=== PATIENT | female | born 1985 | race Caucasian/White ===

== ENCOUNTER 2017-11-27 05:04 | Emergency (ER) | payer OTHER ==
[~2017-11-27] VITALS: Ht 167.6 cm; Wt 72.6 kg
--- NOTE | 2017-11-27 05:10 | NUR ---
MD AT BEDSIDE FOR EVALUATION
--- NOTE | 2017-11-27 05:26 | NUR ---
RT PAGED FOR BREATHING TX.
[2017-11-27] MEDS ORDERED: DEXAMETHASONE SOD PHOSPHATE 10 MG/ML VIAL IM ONE (05:30)
[2017-11-27] MEDS ORDERED: IPRATROPIUM NEB FS 0.5 MG/2.5 ML AMPUL.NEB NEB ONE (05:30)
[2017-11-27] MEDS ORDERED: ONDANSETRON 4 MG TAB.RAPDIS SL ONE (05:30)
[2017-11-27] MEDS ORDERED: IBUPROFEN 600 MG TABLET PO ONE ×2 (05:30→05:31)
[2017-11-27] MEDS ORDERED: ALBUTEROL FS 2.5 MG/3 ML VIAL.NEB NEB ONE (05:30)
--- NOTE | 2017-11-27 05:30 | NUR ---
URINE COLLECTED AND PICKED UP BY LAB
[2017-11-27] MEDS ORDERED: DEXAMETHASONE SOD PHOSPHATE 10 MG/ML VIAL ONE (05:31)
[2017-11-27] MEDS ORDERED: ONDANSETRON 4 MG TAB.RAPDIS ONE (05:32)
[2017-11-27] MEDS ORDERED: ALBUTEROL FS 2.5 MG/3 ML VIAL.NEB ONE (05:33)
[2017-11-27] MEDS ORDERED: IPRATROPIUM NEB FS 0.5 MG/2.5 ML AMPUL.NEB ONE (05:33)
--- NOTE | 2017-11-27 05:35 | NUR ---
RT AT BEDSIDE FOR BREATHING TREATMENT
[2017-11-27 06:07] VITALS: BP 132/62
== END 2017-11-27 06:08 | disposition home or self-care (01) ==
LOC: ER 05:16
DX: J20.9 Acute bronchitis, unspecified (principal); J45.909 Unspecified asthma, uncomplicated; M19.90 Unspecified osteoarthritis, unspecified site; F17.200 Nicotine dependence, unspecified, uncomplicated; Z86.19 Personal history of other infectious and parasitic diseases
CPT/HCPCS: 84703; 94640 ×2; 96372; 99284; J1100; Q0162; Z7610; A4606

== ENCOUNTER 2018-06-02 23:28 | Emergency (ER) | payer OTHER ==
[~2018-06-02] VITALS: Ht 167.6 cm; Wt 70.3 kg
--- NOTE | 2018-06-03 00:31 | NUR ---
URINE SPECIMEN OBTAINED AND SENT TO THE LAB.
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
[2018-06-03 00:55] LABS: BASOPHILS # (AUTO) 0.1 /CMM (0.0-0.2); BASOPHILS % (AUTO) 0.9 % (0.0-2.0); EOSINOPHILS % (AUTO) 3.6 % (0.0-6.0); HEMATOCRIT 36 % (33-45); HEMOGLOBIN 12.5 g/dL (11.5-14.8); LYMPHOCYTES # (AUTO) 2.6 /CMM (0.8-4.8); LYMPHOCYTES % (AUTO) 43.3 % (20.0-44.0); MEAN CORPUSCULAR HGB CONC 35 g/dl (31.0-36.0); MEAN CORPUSCULAR VOLUME 88 fL (82-100); MONOCYTES # (AUTO) 0.5 /CMM (0.1-1.30); MONOCYTES % (AUTO) 8.2 % (2.0-12.0); NEUTROPHILS # (AUTO) 2.7 /CMM (1.8-8.9); PLATELET COUNT (AUTO) 269 /CMM (150-450); RED BLOOD CELL COUNT(AUTO) 4.04 MIL/uL (4.0-5.2); WHITE BLOOD COUNT (AUTO) 6.1 K/uL (4.3-11.0)
[2018-06-03] MEDS ORDERED: ONDANSETRON HCL/PF 4 MG/2 ML VIAL IVP ONE (01:00)
[2018-06-03] MEDS ORDERED: KETOROLAC TROMETHAMINE INJ 30 MG/ML VIAL IV ONE (01:00)
[2018-06-03] MEDS ORDERED: IV NS 0.9% 500 ML BAG IV ONE (01:00)
[2018-06-03 01:01] LABS: APPEARANCE,URINE CLEAR (CLEAR); BILIRUBIN,URINE NEGATIVE (NEGATIVE); BLOOD, URINE TRACE-INTA Ery/uL (NEGATIVE); COLOR,URINE YELLOW (YELLOW); KETONES,URINE TRACE (NEGATIVE); LEUKOCYTE ESTERASE ,URINE NEGATIVE (NEGATIVE); NITRITE, URINE NEGATIVE (NEGATIVE); PROTEIN,URINE NEGATIVE (NEGATIVE); UGLUCOSE NEGATIVE (NEGATIVE); UROBILINOGEN,URINE 0.2 EU/dL (0.2)
[2018-06-03 01:06] LABS: CALCIUM, SERUM 8.9 mg/dL (8.5-10.1); CREATININE 0.6 mg/dL (0.6-1.3); POTASSIUM 3.7 mmol/L (3.5-5.1)
[2018-06-03 01:13] LABS: BACTERIA,URINE None seen /HPF (None Seen); MUCUS,URINE Moderate /LPF (None Seen); RBC,URINE 0-2 /HPF (0-2); SQUAMOUS EPITHELIAL CELL,UR Moderate /HPF (None Seen)
[2018-06-03 01:16] LABS: ALBUMIN 3.5 g/dL (3.4-5.0); BILIRUBIN,DIRECT 0.1 mg/dL (0.0-0.2); BILIRUBIN,TOTAL 0.3 mg/dL (0.2-1.0); TOTAL PROTEIN, SERUM 6.8 g/dL (6.4-8.2)
--- NOTE | 2018-06-03 01:35 | NUR ---
PT TAKEN TO CT.
[2018-06-03] MEDS ORDERED: KETOROLAC TROMETHAMINE 15 MG/ML VIAL ONE (01:43)
[2018-06-03] MEDS ORDERED: ONDANSETRON HCL/PF 4 MG/2 ML VIAL ONE (01:43)
--- NOTE | 2018-06-03 01:45 | NUR ---
PT RETURNED TO CT.
--- NOTE | 2018-06-03 02:10 | NUR ---
Pt resting comfortably in bed, NAD noted. Will continue to monitor.
--- NOTE | 2018-06-03 03:02 | NUR ---
Patient discharged to home in stable condition. Written and verbal after care instructions given. Patient verbalizes understanding of instruction. IV removed. Catheter intact and site benign. Pressure and 4x4 applied to site. No bleeding noted. Pt ambulatory with steady gait.
[2018-06-03 03:03] VITALS: BP 112/78
== END 2018-06-03 03:04 | disposition home or self-care (01) ==
LOC: ER 23:33
DX: R10.31 Right lower quadrant pain (principal); J45.909 Unspecified asthma, uncomplicated; K58.9 Irritable bowel syndrome, unspecified; A63.0 Anogenital (venereal) warts; F10.10 Alcohol abuse, uncomplicated; F17.200 Nicotine dependence, unspecified, uncomplicated; F12.10 Cannabis abuse, uncomplicated; Y90.9 Presence of alcohol in blood, level not specified
CPT/HCPCS: 36415; 74176; 76856; 80048; 80076; 81001; 84703; 85025; 96374; 96375; 99284; J1885; J2405; J7030; 81000-TC